=== PATIENT | male | born 1945 | race Caucasian/White ===

== ENCOUNTER 2019-11-23 16:34 | Inpatient (IN) | payer OTHER, SELFPAY ==
[2019-11-21 10:52] VITALS: BMI 35.4
--- NOTE | 2019-11-21 11:24 | ANES.PREANES ---
Pre-Anesthetic Assessment Pre-Anesthetic Assessment: Height/Weight: Height 1.75 m Weight 108.862 kg Proposed Procedure: Operation Date: 11/23/19 07:00 Proposed Procedures p Anterior Cervical Discectomy&Fusion 3Lev C4-C5 C5-C6 C6-C7(Not Applicable) - Doyle Marquez MD s Hardware Removal Cervical C6-C7(Not Applicable) - Doyle Marquez MD Social: Social History: Alcohol and No tobacco Exam: Pre-Anes Outpt Exam: alert, oriented x 3, clear to auscultation bilaterally and regular rate & rhythm Airway: Submandibular: WNL Cervical ROM: Other (poor) MP: 2 Dentition: Full History/ROS: No significant history except as noted Pulmonary: Pulmonary: None reported CV/HEM: CV/HEM: None reported : : None reported GI: GI: GERD and Hiatus hernia Musc/skel: Musc/skel: OA/DJD Comments: neck fusion Anesthetic Plan: ASA status: II Anesthesia: Anesthesia Evaluation and General Risk of > 500 ml blood loss (7ml/kg in children): No PFSH Anesthesia PFSH: Medical History (Updated 11/21/19 @ 11:25 by Kalpesh Khalil MD) GERD (gastroesophageal reflux disease) (Acute) Surgical History (Updated 11/21/19 @ 11:25 by Kalpesh Khalil MD) Hx of hernia repair (Acute) Hx of neck surgery (Acute) Data Anesthesia Cardiac Studies: No Data to Display
[2019-11-23] VITALS (15 sets, daily range): BP systolic 124–168; BP diastolic 77–99; PULSE 70–99; RESP 13–20; TEMP 36.7–37.3; O2SAT 93–97
[2019-11-23] MEDS: sodium chloride 0.9% 1,000 ML 30 ML IV (10:05)
--- NOTE | 2019-11-23 10:19 | SUR.PREOP ---
PT HAD TO LEAVE AND GET HISTORY [facility] BECAUSE IT WAS NEEDED FOR SURGERY
--- NOTE | 2019-11-23 10:29 | P.HPUD_ITS ---
H&P update H&P Update: DATE OF SURGERY/PROCEDURE: 11/23/19 PLANNED PROCEDURE: Operation Date: 11/23/19 07:00 Proposed Procedures Anterior Cervical Discectomy/Fusion/fixation C4-C5 and C5- C6, with C6-C7 hardware removal Full H&P Medications/Allergies: Current Medications: Current Medications Generic Name Dose Route Start Last Admin Trade Name Freq PRN Reason Stop Dose Admin Sodium Chloride 1,000 mls @ 30 ml s/hr 11/23/19 06:00 11/23/19 10:05 Sodium Chloride 0.9% IV 11/24/19 05:59 30 mls/hr .Q24H ANGY Administration Perinent History: Medical/Surgical History: Medical History (Updated 11/21/19 @ 11:25 by Kalpesh Khalil MD) GERD (gastroesophageal reflux disease) (Acute)
--- NOTE | 2019-11-23 10:44 | PM.HPUD ---
H&P update H&P Update: DATE OF SURGERY/PROCEDURE: 11/23/19 DATE H&P PERFORMED: 11/23/19 H&P UPDATE INFORMATION: H&P completed within last 30 days and No changes to prior documentation PREOP DIAGNOSIS: Intervertebral disc disorder with myelopathy PLANNED PROCEDURE: Operation Date: 11/23/19 07:00 Proposed Procedures Anterior Cervical Discectomy/Fusion/fixation C4-C5 and C5-C6, with C6-C7 Hardware Removal Full H&P Medications/Allergies: Current Medications: Current Medications Generic Name Dose Route Start Last Admin Trade Name Freq PRN Reason Stop Dose Admin Sodium Chloride 1,000 mls @ 30 ml s/hr 11/23/19 06:00 11/23/19 10:05 Sodium Chloride 0.9% IV 11/24/19 05:59 30 mls/hr .Q24H ANGY Administration Perinent History: Medical/Surgical History: Medical History (Updated 11/21/19 @ 11:25 by Kalpesh Khalil MD) GERD (gastroesophageal reflux disease) (Acute)
--- NOTE | 2019-11-23 11:22 | XR_ITS ---
WS: [id number] Portable lateral cervical spine in the OR, 11/23/2019 Clinical Data: SURGERY Comparison: Lateral cervical spine, 08/30/2019. Findings: The patient's head and anterior cervical disc fusion at C6-C7. Large anterior osteophytes are seen at C5 3, C4 and C5. Degenerative disc change is present at C3-C4, C4-C5 and C5-C6. There is an endotrac heal tube in position XR/XR cervical spine [facility] [id number] Impression: 1. Anterior cervical disc fusion at C6-C7. 2. Osteoarthritic change and degenerative disc disease from C3-C4 through C5-C6 .
--- NOTE | 2019-11-23 11:55 | SUR.OPER ---
UPDATED PATIENT'S STATUS VIA PHONE IN WAITING ROOM.
--- NOTE | 2019-11-23 12:00 | XR_ITS ---
WS: [id number] INTRAOPERATIVE TECHNIQUE: Lateral cervical spine intraoperative purposes CLINICAL INFORMATION: SURGERY COMPARISON: None. FINDINGS: Single lateral view of the cervical spine. Localization marker anteriorly at C4-5. Anterior cervical fusion at C6-7. XR/XR cervical spine [facility] [id number] IMPRESSION: Images obtained for intraoperative purposes.
--- NOTE | 2019-11-23 13:05 | SUR.OPER ---
NOTIFIED FAMILY OF PATIENT'S STATUS VIA PHONE IN WAITING ROOM.
--- NOTE | 2019-11-23 14:09 | SUR.OPER ---
UPDATED VIA PHONE IN WAITING ROOM.
--- NOTE | 2019-11-23 14:23 | ANE.PACU ---
 Inpatient post-anesthesia follow up: Airway intact: Yes Vital signs: Temperature 98.3 F Pulse Rate [Right Radial] 70 Respiratory Rate 18 Blood Pressure [Le ft Arm] 159/93 Pulse Oximetry 96 Oxygen Delivery Me thod Room Air Oxygen Flow Rate Fraction of Inspir ed Oxygen Hydration adequate: Yes Nausea and vomiting: No Mental status: Baseline
--- NOTE | 2019-11-23 15:29 | XR_ITS ---
WS: [id number] Single portable lateral view in the OR of the cervical spine, 11/23/2019, 1554 hours. Clinical Data: CERVICAL SURGERY Comparison: Lateral OR cervical spine, 11/23/2019, 1224 hours. Findings: There is an anterior cervical disc fusion which has been placed from C3 through C6. Intervertebral di sc spacers is present at C3-C4. XR/XR cervical spine 1V [id number] Impression: Anterior cervical disc fusion extending from C3 to C6.
--- NOTE | 2019-11-23 16:44 | SUR.PHASEI ---
1637- RECEIVED PATIENT IN PACU FROM OR VIA [facility]. RESP ARE EVEN AND NONLABORED. SAT 93% WITH ROOM AIR. HE IS AWAKE AND ALERT. DRESSING TO ANTERIOR NECK DRY AND INTACT WITH NECK BRACE IN PLACE. HE DENIES PAIN OR NAUSEA
--- NOTE | 2019-11-23 16:45 | PM.PACU ---
PACU note Post-Anesthesia Exam: awake and vital signs stable
--- NOTE | 2019-11-23 17:05 | XR_ITS ---
WS: [id number] Cervical spine, portable lateral and AP, 11/23/2019, 1706 hours Clinical Data: postop Comparison: Lateral cervical spine, 11/23/2019, 1554 hours. Findings: An anterior cervical disc fusion has been performed from C4 through C7. There are bilateral screws in the anterior aspect of C4 and C7. Disc spacers at C3-4 and C6-C7 are seen. The lung apices and soft tissues of neck are unremarkable. There are healed rib fractures of the posterior lateral a spect of the right fourth and fifth ribs. XR/XR cervical spine 3V* [id number] Impression: Anterior cervical disc fusion C4-C7.
--- NOTE | 2019-11-23 17:10 | SUR.PHASEI ---
1711- TRANSFERRED PATIENT FROM PACU TO . RESP ARE EVEN AND NONLABORED. SAT 97% WITH 2L/NC. HE IS AWAKE AND ALERT, PLEASANT. ACUTE SITE DRESSING DRY AND INTACT WITH IMMOBILIZER IN PLACE. HE DENIES PAIN OR NAUSEA. TRANSITION OF CARE TO [facility]
[2019-11-23] MEDS: docusate sodium 100 mg Capsule PO (18:00)
[2019-11-23] MEDS: lactated ringers 1,000 ML 90 ML IV (18:00)
[2019-11-23] MEDS: HYDROcodone-acetaminophen 5-325 mg Tablet PO (18:03)
--- NOTE | 2019-11-23 18:38 | PM.PN ---
Subjective Subjective: Interval history: I'm a little sore. Vitals/I&O/Wt Last Vital Signs Temp 98.1 F 11/23/19 17:23 Pulse 85 11/23/19 18:03 Resp 20 H 11/23/19 17:23 BP 162/98 11/23/19 17:23 Pulse Ox 95 11/23/19 18:03 11/23/19 11/23/19 11/23/19 06:59 14:59 22:59 Intake Total 1050 / 1050 850 / 1900 Output Total 500 / 500 Balance 1050 / 1050 350 / 1400 Physical Exam Neck/C-Spine: GENERAL: Yes other CERVICAL SPINE: Yes collar present and Yes other (Left anterolateral neck surgical site dressing with scant serosanguineous drainage. Dressing changed at bedside. Incision intact, without erythema or active drainage.) Resp: COMMON NORMALS: normal respiratory effort EFFORT & INSPECTION: No stridor Neuro: COMMON NORMALS: moves all extremities and no focal motor deficits (Bilateral upper extremities) Psych: COMMON NORMALS: mental status grossly normal and cooperative Urinary Catheter Management^: F: Cath Placed During This Visit: no A&P Assessment and plan (1) Intervertebral cervical disc disorder with myelopathy, cervical region: Patient is doing well after C5 corpectomy, with C4-C6 anterior cervical fusion/fixation, and removal of prior C6-C7 plate/screw fixation hardware. Complete scheduled postoperative intravenous antibiotic doses, and physical therapy postoperative spine protocol. Anticipate discharge home tomorrow. Status: Chronic Code(s): M50.00 - Cervical disc disorder with myelopathy, unspecified cervical region (2) Collapse of vertebra: Status: Acute Code(s): M48.50XA - Collapsed vertebra, not elsewhere classified, site unspecified, initial encounter for fracture (3) Instability of joint: Status: Acute Code(s): M25.30 - Other instability, unspecified joint (4) Status post cervical spinal fusion: Status: Acute Code(s): Z98.1 - Arthrodesis status Attestations Medical Necessity Statement*: Patient is appropriate for hospital management following cervical spine fusion surgery earlier today. 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
--- NOTE | 2019-11-23 20:32 | PC.NURSE ---
sr on tele, box number [id number]
[2019-11-23] MEDS: ketorolac 30 mg/mL INJ 15 MG IVP (21:51)
[2019-11-24] VITALS (7 sets, daily range): BP systolic 137–154; BP diastolic 81–85; PULSE 86–88; RESP 16–22; TEMP 36.7–37.6; O2SAT 95–98
--- NOTE | 2019-11-24 04:53 | PC.NURSE ---
Pt with good po intact requested iv fluids be stopped at this time.
[2019-11-24] MEDS: HYDROcodone-acetaminophen 5-325 mg Tablet PO ×2 (06:05→10:52)
--- NOTE | 2019-11-24 06:15 | PC.NURSE ---
rossi removed at this time tolerated well.
[2019-11-24] MEDS: docusate sodium 100 mg Capsule PO (09:48)
--- NOTE | 2019-11-24 10:04 | SUR.OPER ---
late entry: 11/23/2019 1200 surgifoam 1 sponge was used in the neck. lot [id number] exp 12/21/22.
--- NOTE | 2019-11-24 10:46 | P.OP_ITS ---
Operative Report Post-Operative Note Date of procedure: 11/23/19 Operative Report Procedure: DATE OF SURGERY: 11/23/2019 DATE OF DICTATION: 11/24/2019 PREOPERATIVE DIAGNOSIS: 1. Intervertebral disc disorder with myelopathy, midcervical region. 2. Cervical fusion history. POSTOPERATIVE DIAGNOSES: 1. Intervertebral disc disorder with myelopathy, midcervical region. 2. Collapse of vertebra. 3. Instability of joint. 4. Cervical fusion history. PROCEDURES PERFORMED: 1. C5 corpectomy. 2. C4-C6 anterior cervical plate and screw fixation (Synthes Vectra system). 3. C4-C6 placement of intervertebral prosthetic device (Synthes Bengal Cage). 4. C4-C6 anterior cervical fusion utilizing morselized autograft obtained from the osteophytectomy portions of the procedure. 5. Removal of C6-C7 anterior plate/screw fixation hardware. ANESTHESIA: General endotracheal. ESTIMATED BLOOD LOSS: 100 milliliters. SURGEON: Rosie Marquez M.D. INDICATIONS FOR PROCEDURE: The patient is a 74-year-old white male with symptomatic, radiographically confirmed cervical disc/joint disease, with associated neural impingement. Imaging studies demonstrated dominant neural impingement findings at C4-C5 and C5-C6, with postoperative ACDFF changes at C6-C7. Prominent anterior and posterior marginal osteophytes were demonstrated. Conservative management did not provide adequate lasting symptom relief. After review of the diagnostic and treatment options with the risks/potential benefits/rationale for each, the patient requested to proceed with surgical intervention. DESCRIPTION OF PROCEDURE: After routine preoperative evaluation and informed co nsent were obtained, the patient was taken to the Operating Room and placed under general endotracheal anesthesia. He was positioned supine and fit in the [place] tongs for the application of in-line cervical traction. The anterolateral neck on the left was prepared with hair clippers. A proposed transverse skin incision was marked with a sterile skin marker, utilizing intraoperative radiography and regional anatomy for localization. The area was scrubbed with Betadine, prepped with DuraPrep, and draped with sterile towels and drapes. [place] surgical barrier was applied. The proposed incision site was infiltrated with 1% Xylocaine with Epinephrine. A skin incision was made and carried down into the subcutaneous tissues. The platysma was identified and divided in the direction of its fibers. A plane was dissected just medial to the carotid sheath and lateral to the midline esophagus and trachea. Prevertebral soft tissues were bluntly dissected free of the anterior margin of the cervical spine and the previously implanted C6-C7 fixation hardware. Extensive subcutaneous and prevertebral scarring was encountered. Very prominent anterior marginal osteophytes were demonstrated at C4-C5 and C5-C6, with asymmetry toward the right. Longus coli muscles were freed from their medial attachments. Deep self-retaining retractors were placed. Intraoperative radiography verified the desired surgical levels. The C4-C5 interspace was incised with a #11 blade. Discectomy was accomplished utilizing various curettes and pituitary rongeurs. Anterior marginal osteophytes were resected with the [place] and [place] rongeurs. Cartilaginous end plates were stripped free with curettes. Posterior marginal osteophytes were resected with thin foot plate [place] rongeurs. The medial aspects of the neural foramina were enlarged in a similar manner. Posterior longitudinal ligament was divided and resected as necessary to further the decompression. Due to extensive bony overgrowth of the disc space and marginal osteophyte contribution to neural impingement, the Midas Kirit high-speed drill with demi may was utilized to complete the osteophytectomy portions of the procedure and for endplate preparation. The retractors were repositioned to maximize exposure at C6-C7. The previously implanted plate and screw fixation hardware was removed intact. No hardware failure was appreciated. Solid fusion across the interspace was suggested. The C5-C6 interspace demonstrated extensive bony overgrowth. Significant canal encroachment related to posterior marginal osteophytes was demonstrated on preoperative imaging studies. After extensive work reestablishing a disc space at C5-C6 utilizing curettes, rongeurs and the Midas Kirit high-speed drill with demi bur, residual neural impingement posterior to the C5 vertebral body was evident. The decision was made to proceed to a C5 corpectomy to address this residual neural compression. A corpectomy was accomplished utilizing various rongeurs and the Midas Kirit high- speed drill with demi bur. Epidural adhesions were encountered, particularly on the right. Once the canal decompression and endplate preparation appeared adequate, corpectomy defect dimensions were obtained. A Bengal Cage was chosen, and packed with morselized autograft obtained from the osteophytectomy/corpectomy portions of the procedure. The Cage was placed within the C5 corpectomy defect while inline cervical traction was applied via the [place] tongs. Cage placement was facilitated by use of the mallet and impaction tools. Intraoperative radiography was utilized to assist in obtaining acceptable device positioning. Once the Cage was felt to be in good position, a Synthes Vectra plate of the desired size was chosen. The plate was bent to match the curvature of the patient's cervical spine utilizing the plate dumas. The plate was secured to the C4 and C6 vertebral bodies with bilateral 4.5 mm x 16 mm self-drilling screws. Final screw tightening was performed, and the locking mechanisms within the plate were noted to engage the screws at each site. The construct was inspected and felt to be in good position and secure. The wound was copiously irrigated with sterile saline and antibiotic irrigation. Hemostasis was ensured with the bipolar electrocautery. Wound closure was performed in multiple layers with 2-0 Vicryl Plus simple interrupted closure of the platysma and deep dermis as separate layers. Final skin closure was performed with 4-0 Vicryl Plus in a running subcuticular pattern. Steri-Strips were applied, and a sterile dressing was placed. The patient was released from the [place] tongs and fit in a [place] collar. He was transferred onto the Recovery Room cart in the supine position. He was extubated without incident. The patient tolerated the procedure well. There were no known complications. All sponge, needle, and instrument counts were correct at the completion of the procedure.
--- NOTE | 2019-11-24 11:08 | PC.NURSE ---
Discharge Discharge information given per physician's orders. Patient verbalized understanding and was able to teach back about activity restrictions and follow up appointments. Patient to be drove home by .
--- NOTE | 2019-11-24 13:53 | P.DS_ITS ---
Discharge Providers Date of Admission: 11/23/19 16:35 Date of Discharge: 11/24/19 Attending Provider at Admission: Doyle Marquez Attending Provider at Discharge: Doyle Marquez Primary Care Provider: Luz Maria Mims MD Diagnoses at Discharge Discharge Diagnosis (1) Intervertebral cervical disc disorder with myelopathy, cervical region: Status: Chronic Problem details: Patient is doing well after C5 corpectomy, with C4-C6 anterior plate-screw fixation/fusion and removal of C6-C7 fixation, performed yesterday. He is voiding, tolerating diet, and appears appropriate for discharge home today. (2) Collapse of vertebra: Status: Acute (3) Instability of joint: Status: Acute (4) Status post cervical spinal fusion: Status: Acute Reason for Visit Reason for Visit: Reason For Visit: Cervical Disc disorder with Myelopathy of mid cerv Hospital Course Hospital Course: The patient underwent a C5 corpectomy with C4-C6 anterior cervical fusion/fixation and removal of previously implanted C6-C7 hardware on 11/23/2018. He tolerated the procedure well. He completed perioperative intrave nous antibiotic doses, and the physical therapy postoperative spine protocol. He was ambulatory, voiding, and tolerating diet prior to requested discharge home on postoperative day #1. Physical Exam Const: COMMON NORMALS: no apparent distress GENERAL APPEARANCE: cooperative and comfortable Neck/C-Spine: COMMON NORMALS: no JVD CERVICAL SPINE: Yes collar present Resp: COMMON NORMALS: normal respiratory effort EFFORT & INSPECTION: Yes able to speak in complete sentences and No stridor Cardio: COMMON NORMALS: no JVD Extremity: GENERAL: No clubbing and No cyanosis Neuro: COMMON NORMALS: moves all extremities and no focal motor deficits (bilateral upper extremities) GAIT: Yes other (ambulates unassisted) Psych: ATTITUDE: Yes calm ACTIVITY/MOTOR BEHAVIOR: Yes appropriate eye contact MOOD & AFFECT: Yes euthymic mood INSIGHT: insight good JUDGEMENT: judgment good Skin: WOUNDS: Yes surgical site Details: other (Dressing clean/dry/intact. Left anterolateral neck incision intact, without erythema or drainage.) Urinary Catheter Management^: F: Cath Placed During This Visit: no Discharge Data Data Completed and Pending: Completed Studies During Hospitalization Category Date Time Status XR cervical spine 1 view portable [ XR cervical spine Exams 11/23/19 11:22 [address]pleted [facility] [id number]] Rou lambert XR cervical spine 1 view portable [ XR cervical spine Exams 11/23/19 12:00 Completed [facility] [id number]] Rou lambert XR cervical spine 1V [id number] Stat Exams 11/23/19 15:29 Completed XR cervical spine 3V* [id number] Routine Exams 11/23/19 17:05 Completed Pathology: Surgic al [PTH] Routine Pth 11/23/19 16:40 Completed Vitals: Last Vital Signs Temp 98.0 F 11/24/19 11:07 Pulse 88 11/24/19 11:07 Resp 16 11/24/19 11:07 BP 154/83 11/24/19 11:07 Pulse Ox 95 11/24/19 11:07 Discharge Plan Discharge Patient Disposition: Home, Self-Care Prescriptions: New [place] 7.5-325 mg tablet 1 tab PO Q4H PRN (Reason: pain) Qty: 30 RF: 0 Continued ranitidine HCl 150 mg Tablet 150 mg PO DAILY RF: 0 Aleve 220 mg Tablet 220 mg PO Q12H PRN (Reason: Pain, Mild) RF: 0 Discharge Orders: Discharge Order (Routine); Ordered 11/24/19 Ordered By: Doyle Marquez Other Ambulatory Orders: XR cervical spine 3V* [id number] (Routine) Timeframe: 2 Weeks Facility: [facility] - Location: Radiology [facility] Ordered By: Doyle Marquez Referrals: Doyle Marquez MD [Physician] - 2 weeks (AP/lateral c-spine x-rays prior to visit.) Discharge Diet: Advance as tolerated Discharge Activity: Limit activity as instructed Patient Instructions: Hydrocodone/Acetaminophen (By mouth), Surgical Site Infections (GEN) Activity Restrictions/Additional Instructions: Activity -Cervical fusion: Wear cervical collar 24 hours a day. Change as necessary for showering, shaving, or if it becomes soiled. -No lifting or reaching overhead. - No driving until office followup visit - No lifting/pushing/pulling over 10 pounds - Avoid twisting or bending - Walking is encouraged - Home exercise per physical therapist - You may engage in sexual intercourse at any time as long as it is comfortable for you - Check with your doctor before returning to work. Notify your doctor if you develop: - temperature of 101.5 degrees F. or higher - redness or swelling of the incision - Foul drainage - increasing pain - increasing numbness or tingling in the arms or legs - New or increasing problems with vision, balance, memory, speaking, nausea or vomiting Hygiene: - Showering is okay - No tub baths or soaking Other: Remove outer bandage 3 days after surgery. If you have paper strips, leave in place until they fall off on their own. If you have stitches, keep your incision dry until the stitches are removed. Your doctor's office is available to answer any questions from 7 AM to 5:30 PM, Wednesday through at [phone]. After hours, go to the emergency room at [facility] or call 911 for assistance. 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
== END 2019-11-24 11:15 | disposition home or self-care (01) | DRG 472 ==
LOC: MEDSURG 16:35
PROVIDERS: Admitting Provider Specialist; Family Provider Family Medicine; PCP Family Medicine; Visit Provider Specialist
PROC: 0RB30ZZ Excision of Cervical Vertebral Disc, Open Approach (ICD-10-PCS; CPT 22551; principal; 2019-11-23 10:35)
PROC: 0RG20A0 Fusion of 2 or more Cervical Vertebral Joints with Interbody Fusion Device, Anterior Approach, Anterior Column, Open Approach (ICD-10-PCS; 2019-11-23 10:35)
DX: M50.021 Cervical disc disorder at C4-C5 level with myelopathy (principal); M48.52XA Collapsed vertebra, not elsewhere classified, cervical region, initial encounter for fracture; M53.2X2 Spinal instabilities, cervical region; K21.9 Gastro-esophageal reflux disease without esophagitis
CPT/HCPCS: 12345; 51702; 72020; 72040; 88304; 96375; 97161; C1713; J0690; J1885; J2001; J2370; J2704; J3010; J3490; J7030; L0172; L0174

== ENCOUNTER 2019-12-07 12:09 | Outpatient (CLI) | payer OTHER, SELFPAY ==
--- NOTE | 2019-12-07 12:16 | XR_ITS ---
WS: [id number] CERVICAL SPINE TECHNIQUE: 3 views of the cervical spine CLINICAL INFORMATION: Arthrodesis status, S/P SPINAL FUSION COMPARISON: None. FINDINGS: Straightening of the normal cervical lordosis. Anterior cervical fusion C4-C6 with interbody fusion. Hardware appears in good position. Osteopenia. Expected postoperative prevertebral soft tissue edema at C4-C6. XR/XR cervical spine 3V* [id number] IMPRESSION: 1. Straightening of the normal cervical lordosis with recent postoperative C4- C6 ACDF with partial corpectomy and interbody fusion graft. 2. Hardware appears in good position. 3. Expected postoperative Prevertebral soft tissue edema at C4-C6
== END 2019-12-07 12:10 | disposition home or self-care (01) ==
PROVIDERS: Family Provider Family Medicine; PCP Family Medicine; Visit Provider Specialist
DX: G95.19 Other vascular myelopathies (principal); Z98.1 Arthrodesis status
CPT/HCPCS: 72040

== ENCOUNTER 2020-01-04 09:58 | Outpatient (CLI) | payer OTHER, SELFPAY ==
--- NOTE | 2020-01-04 11:00 | XR_ITS ---
WS: [id number] CERVICAL SPINE 2 VIEWS HISTORY: s/p cervical spinal fusion COMPARISON: 12/07/2019 Anterior cervical fusion hardware extends from C4 through C7. Interbody fusion is again noted and unc hanged. Fusion does appear to be complete. There is extensive facet joint arthropathy, disc narrowing and osteopenia. Moderate disc space narrowing at C3-4. No interval change in appearance of the hardware. There is mild persistent soft tissue thickening ant eriorly measuring 2.4 cm with slight improvement since 12/07/2019. XR/XR cervical spine 3V* [id number] IMPRESSION: 1. Status post anterior cervical fusion from C4 to C7 with interbody spacers. No complications are evident. 2. Persistent prevertebral soft tissue edema but slightly improved since 2019.
== END 2020-01-04 09:59 | disposition home or self-care (01) ==
LOC: RADWPI 10:00
PROVIDERS: Family Provider Family Medicine; PCP Family Medicine; Visit Provider Licensed Practical Nurse
DX: Z98.1 Arthrodesis status (principal); M79.89 Other specified soft tissue disorders
CPT/HCPCS: 72040

== ENCOUNTER 2020-01-18 10:22 | Outpatient (CLI) | payer OTHER, SELFPAY ==
--- NOTE | 2020-01-18 10:31 | XR_ITS ---
WS: [id number] CERVICAL SPINE TECHNIQUE: 3 views of the cervical spine CLINICAL INFORMATION: Cervical fusion/fixation COMPARISON: January 04, 2020 FINDINGS: Postoperative changes corpectomy with anterior cervical fusion C4-C7. Prevertebral soft tissue edema is unchanged. Osteopenia. XR/XR cervical spine 3V* [id number] IMPRESSION: Stable postoperative changes C4-C7 with corpectomy and interbody fusion grafts. Prevertebral soft tissue edema is unchanged.
== END 2020-01-18 10:23 | disposition home or self-care (01) ==
PROVIDERS: Family Provider Family Medicine; PCP Family Medicine; Visit Provider Licensed Practical Nurse
DX: Z98.1 Arthrodesis status (principal)
CPT/HCPCS: 72040

== ENCOUNTER 2020-01-31 14:00 | Outpatient (CLI) | payer OTHER, SELFPAY ==
--- NOTE | 2020-01-31 14:04 | CT_ITS ---
WS: [id number] CT CERVICAL SPINE TECHNIQUE: Noncontrast CT of the cervical spine with coronal and sagittal reformatted images. CLINICAL INFORMATION: S/P CERVICAL SPINAL FUSION COMPARISON: CT August 30, 2019 DLP: 2051.[address] scans at [facility] use at least one of these dose optimization techniques: automat ed exposure control; mA and/or kV adjustment per patient size (includes targeted exams where dose is matched to clinical indication); or iterative reconstruction. FINDINGS: Mild cervical curve convex left. Mild spondylitic changes. Normal C1-C2 articulation. Interval postop erative changes anterior cervical fusion C4-C6 with corpectomy at C5 with interbody fusion graft. Qasim dware appears in good position. C2-C3: Moderate right and mild left bony foraminal narrowing. Spinal canal is patent. Moderate facet arthropathy. C3-C4: Disc osteophyte complex with moderate central canal stenosis. Moderate facet arthropathy. Mode rate to severe bilateral bony foraminal narrowing. C4-C5: Postoperative changes. Severe right and mild left bony foraminal narrowing. Mild central canal stenosis. Osteophytic ridging. C5-C6: Postoperative changes. Moderate bilateral bony foraminal narrowing. Moderate central canal prateek nosis with a left pericentral osteophyte. Moderate facet arthropathy. C6-C7: Osteophytic ridging with moderate bilateral bony foraminal narrowing. Mild central canal steno sis. Moderate facet arthropathy. C7-T1: Disc osteophyte complex with endplate ridging. Moderate bilateral bony foraminal narrowing. Mi ld central canal stenosis. Visualized posterior nasopharynx: Normal. Prevertebral soft tissues: Normal. CT/CT cervical spin wo con* [id number] IMPRESSION: 1. Interval postoperative changes anterior cervical fusion C4-C6 with partial corpectomy at C5. Hardware appears in good position. Prior interbody fusion C6- C7. 2. Moderate central canal stenosis C3-C4. 3. Multilevel bony foraminal narrowing worse at left C3-C4, right C4-C5, bilat eral C5-C6 and bilateral C6-C7.
== END 2020-01-31 14:01 | disposition home or self-care (01) ==
LOC: RADWPI 14:01
PROVIDERS: Family Provider Family Medicine; PCP Family Medicine; Visit Provider Licensed Practical Nurse
DX: Z98.1 Arthrodesis status (principal); M48.02 Spinal stenosis, cervical region
CPT/HCPCS: 72125

== ENCOUNTER 2020-11-21 09:17 | Outpatient (CLI) | payer MEDICARE, OTHER, SELFPAY ==
[2020-11-21 09:38] VITALS: BMI 34.9
[2020-11-21 09:39] VITALS: BP 144/81; PULSE 88; RESP 17; TEMP 37.4; O2SAT 93
--- NOTE | 2020-11-21 09:39 | AMB.MCA ---
Patient Information Referred by: Symptom onset date: 11/20/20 COVID 19 common symptoms: positive chills, body aches and nausea COVID 19 other sytmptoms: positive pleuritic pain Severity: moderate [facility] COVID test results: No Data to Display outside results available, [facility] Criteria/Plan Inclusion/Exclusion Criteria weight >/= 40kg, + direct test </= 10 days ago and symptom onset </= 10 days ago age >/= 65 not requiring hospitalization, not requiring oxygen (if not chronically on oxygen) and no increase oxygen requirement (if chronically on oxygen) Patient education patient/caregiver received/reviewed fact sheet, Emergency Use Authorization/unapproved drug status discussed with patient/caregiver, alternatives to this treatment discussed with patient/caregiver, risks and benefits of medication reviewed with patient/caregiver, patient/caregiver given opportunity for questions, which were answered and patient/caregiver consents to receiving Monoclonal Antibody Treatment Plan for treatment Meets criteria for Monoclonal Antibody infusion
[2020-11-21 10:45] VITALS: BP 135/84; PULSE 83; RESP 17; TEMP 37.3; O2SAT 94
[2020-11-21 11:06] VITALS: BP 133/74; PULSE 77; RESP 16; TEMP 37.2; O2SAT 93
[2020-11-21 12:15] VITALS: BP 130/82; PULSE 75; RESP 16; TEMP 37; O2SAT 95
--- NOTE | 2020-11-28 12:32 | DCPLANNER ---
Addendum entered by Christina Mayer 12/03/20 14:12: manager of employee relations called to check on patient after receiving the BAM infusion. Patient stated that he was feeling just fine, a little short of breath, but he is feeling just fine. Has not been admitted to hospital. Original Note: manager of employee relations had message that patient received the BAM infusion. manager of employee relations called to check on patient after receiving the BAM infusion. Patient stated that before the infusion, he was sick to his stomach, no headache, small fever, bad cough. After the infusion, he stated that he is feeling pretty good, has no cough, his stomach is better. Patient stated that he is feeling pretty good.
== END 2020-11-21 12:30 | disposition home or self-care (01) ==
PROVIDERS: Family Provider Family Medicine; PCP Family Medicine; Visit Provider Nurse Practitioner
DX: U07.1 COVID-19 (principal)
CPT/HCPCS: 96365; J7050

== ENCOUNTER 2021-07-01 06:43 | Outpatient (CLI) | payer OTHER, MEDICARE, SELFPAY ==
--- NOTE | 2021-07-01 07:15 | MR_ITS ---
WS: [id number] MRI CERVICAL SPINE NONCONTRAST HISTORY: RADICULOPATHY COMPARISON: 05/16/[address] 01/31/2020. Technique: Multiplanar, multisequence noncontrast imaging of the cervical spine. Prior anterior cervical fusion from C4 through C6 with C5 corpectomy and interbody fusion at C6-7. No acute marrow edema or fracture. Focal area of myelomalacia at the C4-5 level is similar to the prior examination. Craniocervical junction, C1 and C2 relationship, odontoid process and soft tissues are normal. C2-C3: Mild osteophytic ridging with bilateral mild facet joint arthritis. Mild bilateral foraminal s tenosis. C3-C4: Mild diffuse osteophytic ridging and facet joint arthritis. Narrowing of the central canal due to disc and facet disease. Severe central and bilateral foraminal stenosis. C4-C5: Mild osteophytic ridging. Osteophyte to the LEFT and LEFT foramen causing this posterior displ acement of the exiting nerve roots and displacement of the LEFT lateral thecal sac. Mild central and bilateral foraminal stenosis. C5-C6: Large bony bridging osteophyte extending into the LEFT foramen contacting and displacing the n erve roots. There is also displacement of the large hypertrophic osteophyte along the LEFT lateral th ecal sac. Smaller osteophyte and bony bridging on the RIGHT. C6-C7: Diffuse osteophytic ridging with bilateral facet and ligamentum flavum hypertrophy. Moderate c entral and bilateral foraminal stenosis. C7-T1: Osteophytic ridging and facet arthritis. Mild central and moderate foraminal stenosis. Paraspinal soft tissue are normal. MR/MR cervical spin wo con* [id number] IMPRESSION: 1. Status post anterior cervical fusion from C4 through C6 with C5 corpectomy and interbody fusion at C6-7. Appears stable. 2. Chronic myelomalacia at the C4-5 level. 3. Severe central and bilateral foraminal stenosis at C3-4 with mild progressi on since 01/31/2020. Due to combination of disc and osteophyte disease. 4. Multilevel foraminal narrowing is predominantly due to osteophyte and bone hypertrophy. 5. Large bony osteophyte extending into the LEFT foramen at C5-6 and displacin g the nerve roots and contacting the LEFT lateral thecal sac. 6. Moderate central and bilateral foraminal stenosis at C6-7. 7. Mild central and moderate foraminal stenosis at C7-T1.
--- NOTE | 2021-07-01 08:00 | MR_ITS ---
WS: [id number] MRI LUMBAR SPINE NONCONTRAST HISTORY: RADICULAR SYMPTOMS COMPARISON: 2018 TECHNIQUE: Sagittal and axial multisequence imaging is submitted. Increase in thoracic kyphosis. Posterior lumbar vertebral bodies are normally aligned. No marrow laith a or fracture. Disc spaces and vertebral body heights are well-preserved. Conus terminates normally at L2. L1-L2: Normal. L2-L3: Mild annular disc bulging with a central shallow disc protrusion. Mild ligamentum flavum hyper trophy and facet arthritis. Very mild narrowing of the subarticular recesses has progressed since the prior study. L3-L4: Mild annular disc bulging with mild ligamentum flavum hypertrophy and facet arthritis. Mild bi lateral foraminal narrowing predominantly due to facet disease. L4-L5: Mild annular disc bulging and small foraminal osteophytes. Moderate ligamentum flavum disease and facet arthritis. Increase fluid in the facet joints. Mild central, bilateral subarticular recess and bilateral foraminal stenosis. L5-S1: Mild osteophytic ridging and annular disc bulging. Severe RIGHT and moderate LEFT facet joint arthritis. Mild bilateral foraminal narrowing, greatest on the RIGHT. MR/MR lumbar spine wo con* [id number] IMPRESSION: 1. No high-grade central stenosis. Very minimal progression of facet joint art hritis since 2019. 2. Mild central, bilateral subarticular recess and foraminal stenosis L4-5. 3. Severe RIGHT and moderate LEFT facet joint arthritis at L5-S1 with mild augusto ateral foraminal narrowing, RIGHT greater than LEFT. Mild narrowing of the suba rticular recesses at L2-3. 4. Mild bilateral foraminal narrowing at L3-4.
== END 2021-07-01 06:44 | disposition home or self-care (01) ==
LOC: RADSHAW 06:50
PROVIDERS: PCP Emergency Medicine Emergency Medical Services; Visit Provider Emergency Medicine Emergency Medical Services
DX: M54.10 Radiculopathy, site unspecified (principal); M48.061 Spinal stenosis, lumbar region without neurogenic claudication; M48.03 Spinal stenosis, cervicothoracic region; M48.02 Spinal stenosis, cervical region; M25.78 Osteophyte, vertebrae; G95.89 Other specified diseases of spinal cord; M43.22 Fusion of spine, cervical region
CPT/HCPCS: 72141; 72148

== ENCOUNTER → 2022-07-16 10:06 | Outpatient (BNVA) | payer MEDICARE, SELFPAY | PROVIDERS: PCP Emergency Medicine Emergency Medical Services; Visit Provider Family Medicine | DX: D50.9 Iron deficiency anemia, unspecified (principal); H61.23 Impacted cerumen, bilateral | CPT/HCPCS: 83540; 85025 ==